=== PATIENT | male | born 1985 | race Caucasian/White ===

== ENCOUNTER 2017-01-07 12:31 | Emergency (ER) | payer SELFPAY ==
[2017-01-07 12:47] VITALS: BP 139/79
[2017-01-07] MEDS ORDERED: Ibuprofen TAB* 400 MG ONE (12:49)
[2017-01-07] MEDS ORDERED: Lidocaine 1%* 5 ML VIAL ONE (12:49)
[2017-01-07] MEDS ORDERED: Lidocaine 1% INJ* 10 MG/ML 30 ML SDV INJ ONE (12:51)
[2017-01-07] MEDS ORDERED: Ibuprofen TAB* 400 MG PO ONE (12:51)
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
[2017-01-07] MEDS ORDERED: Tetan/Diph/Pertus SYR(Tdap)* 0.5 ML SYR(BOOSTRIX) use SYR IM ONE (13:39)
--- NOTE | 2017-01-07 13:57 | RAD ---
Indication: Traumatic injury to the RIGHT thumb with loss of the nail. Comparison: No relevant prior exams available on the [facility] PACS for comparison. Technique: AP, lateral, and oblique views RIGHT thumb. Report: Overlying bandage limits image quality. Nondisplaced transverse fracture through the tuft of the distal phalanx. Overlying soft tissue swelling and suggestion of periosseous subcutaneous emphysema at the nailbed. Normal articular alignment. IMPRESSION: Nondisplaced open transverse fracture at the tuft of the distal phalanx.
== END 2017-01-07 14:15 | disposition home or self-care (01) ==
LOC: UCCORT 12:31
DX: S61.011A Laceration without foreign body of right thumb without damage to nail, initial encounter (principal); X58.XXXA Exposure to other specified factors, initial encounter
CPT/HCPCS: 90471; 90715; 99213; A9270-GY; G0463; J2001